=== PATIENT | female | born 1965 | race Caucasian/White ===

== ENCOUNTER 2018-01-14 09:05 | Day surgery (SDC) | payer OTHER ==
[2018-01-12 11:24] VITALS: BMI 25.0
[2018-01-14] MEDS ORDERED: BUPIVACAINE HCL/PF 2.5 MG/ML - 30 ML VIAL IJ ONE (10:12)
[2018-01-14] MEDS ORDERED: GUM MASTIC/STORAX/MSAL/ALCOHOL 1 DRP DROPSBTL MC ONE (10:22)
[2018-01-14] MEDS ORDERED: PROPOFOL 20 ML ONE (10:42)
[2018-01-14] MEDS ORDERED: MIDAZOLAM HCL 2 MG/2 ML SINGLE DOSE VIAL ONE (10:42)
[2018-01-14] MEDS ORDERED: LIDOCAINE HCL/PF 2% SDV 5ML VIAL ONE (10:43)
[2018-01-14] MEDS ORDERED: ONDANSETRON 4 MG/2 ML VIAL IVPUSH PRN (11:13)
[2018-01-14] MEDS ORDERED: PROMETHAZINE HCL 25 MG/1 ML VIAL IVPUSH PRN (11:13)
[2018-01-14] MEDS ORDERED: LACTATED RINGERS SOLUTION 1,000 ML IV SCH (11:15)
[2018-01-14] MEDS ORDERED: DEXAMETHASONE SOD PHOSPHATE 4 MG/1 ML VIAL ONE (11:25)
[2018-01-14] MEDS ORDERED: KETOROLAC TROMETHAMINE 30 MG/1 ML VIAL ONE (11:31)
[2018-01-14] MEDS ORDERED: BUPIVACAINE HCL/PF 0.25% (2.5MG/ML) 10 ML VIAL IJ ONE ×2 (11:41→11:47)
[2018-01-14 12:23] VITALS: TEMP 98.1
[2018-01-14 13:56] VITALS: BP 107/82; PULSE 76
--- NOTE | 2018-01-17 12:11 | OP ---
DATE OF OPERATION: 01/14/2018 PREOPERATIVE DIAGNOSIS: Left carpal tunnel syndrome. POSTOPERATIVE DIAGNOSIS: Left carpal tunnel syndrome. OPERATIVE PROCEDURE: Left endoscopic carpal tunnel release. ANESTHESIA: General. COMPLICATIONS: None. ESTIMATED BLOOD LOSS: Minimal. INDICATIONS FOR PROCEDURE: The patient is a 52-year-old female with the above finding indicated for operative treatment. Risks, benefits, and alternatives were discussed with the patient at length. Proper informed consent was obtained. DESCRIPTION OF PROCEDURE: After proper identification of patient and correct operative site, the patient was brought to the operating room and placed supine on the operative table with prominences well padded. General anesthesia was provided by the anesthesiologist adequate for procedure. The left upper extremity was prepped and draped in the usual sterile fashion. A well-padded tourniquet was placed with a sterile prep. Esmarch bandage used to exsanguinate the right upper extremity. Tourniquet was inflated to 250 mmHg. Transverse incision was made over the proximal wrist crease. Incision was taken sharply through the skin with sharp and blunt dissection through the subcutaneous tissues. Antebrachial fascia was divided, and an endoscopic carpal tunnel release system was used. The Micro-Aire system was used. Hamate finder dilators were used to prepare the canal and then the system was inserted deep to the transcarpal ligament to its distal edge, which was properly identified visually. At all times throughout the procedure, excellent visualization was achieved, and at no time was any soft tissue allowed to interpose between the transcarpal ligament and the blade. The blade was then deployed and the transcarpal ligament was divided. The distal 4 cm of the antebrachial fascia were divided under direct mini open incision. This provided complete release from the median nerve to the wrist. The wound was irrigated with saline and repaired with a 4-0 Monocryl suture. Steri-Strips and sterile dressings were applied. The patient was reversed from anesthesia and brought to the recovery room in stable condition. She tolerated the procedure well. LUANA MARCOS M.D. [id number]
== END 2018-01-14 13:30 | disposition home or self-care (01) ==
LOC: FASU 09:05
PROVIDERS: ATTEND Orthopaedic Surgery Hand Surgery
PROC: 01N50ZZ Release Median Nerve, Open Approach (ICD-10-PCS; principal; 2018-01-14 11:34)
DX: G56.02 Carpal tunnel syndrome, left upper limb (principal)
CPT/HCPCS: 84703